=== PATIENT | female | born 1985 | race African-American/Black ===

== ENCOUNTER 2019-08-08 18:21 | Observation (INO) | payer OTHER ==
[~2019-08-08] VITALS: Ht 167.6 cm; Wt 74.5 kg
[2019-08-08 19:23] LABS: BASO % 0 % (0-3); EOS % 0 % (0-3); HEMATOCRIT 37.7 % (36.0-47.0); HEMOGLOBIN 12.7 g/dL (12.0-15.5); LYMPH # 0.8 x10^3/uL (1.0-4.8); LYMPH % 13 % (24-48); MEAN CORPUSCULAR HEMOGLOBIN 31 pg (25-35); MEAN CORPUSCULAR HGB CONC 34 g/dL (31-37); MEAN CORPUSCULAR VOLUME 90 fL (79-100); MONO # 0.3 x10^3/uL (0.0-1.1); MONO % 4 % (0-9); NEUT # 5.3 x10^3/uL (1.8-7.7); NEUT % 82 % (31-73); PLATELET COUNT 162 x10^3/uL (140-400); RED BLOOD COUNT 4.17 x10^6/uL (3.50-5.40); RED CELL DISTRIBUTION WIDTH 13.8 % (11.5-14.5); WHITE BLOOD COUNT 6.5 x10^3/uL (4.0-11.0)
[2019-08-08 19:25] LABS: BILIRUBIN,URINE NEGATIVE (NEG); CLARITY,URINE CLOUDY; NITRITE,URINE NEGATIVE (NEG); PROTEIN,URINE 30 mg/dL (NEG-TRACE); UROBILINOGEN,URINE 0.2 mg/dL (0.2 mg/dL)
[2019-08-08 19:32] LABS: COLOR,URINE PINK
[2019-08-08 19:34] LABS: BACTERIA,URINE FEW /HPF (0-FEW); RBC,URINE >40 /HPF (0-2); SQUAMOUS EPITHELIAL CELL,UR MOD /LPF; WBC,URINE OCC /HPF (0-4)
[2019-08-08 20:04] LABS: CALCIUM 8.4 mg/dL (8.5-10.1); CREATININE 0.7 mg/dL (0.6-1.0); GFR 115.9; POTASSIUM 3.7 mmol/L (3.5-5.1)
[2019-08-08 20:11] LABS: ALBUMIN 3.3 g/dL (3.4-5.0); ALBUMIN/GLOBULIN RATIO 0.9 (1.0-1.7); TOTAL BILIRUBIN 0.2 mg/dL (0.2-1.0); TOTAL PROTEIN 6.8 g/dL (6.4-8.2)
[2019-08-08] MEDS ORDERED: ONDANSETRON PF 4 MG/2 ML VIAL. IVP ONE (20:45)
[2019-08-08] MEDS ORDERED: HYDROmorphone 2 MG/ML VIAL IV ONE (20:45)
--- NOTE | 2019-08-08 20:51 | RAD ---
INDICATION: Vaginal bleeding, . COMPARISON: None available. TECHNIQUE: Endovaginal sonography was performed FINDINGS: The uterus measures 9.5 x 4.8 x 5.6 cm. The endometrium measures 1.3 cm on endovaginal images. Rounded structure is seen in the midline cephalad to the uterus, possibly representing ectopic gestation, without definite cardiac activity. Large volume free pelvic fluid is seen with complex internal echogenicity, likely hemorrhagic. Right ovary measures 2.2 x 3.6 x 2.5 cm. Rim of peripheral vascularity is seen. Left ovary is not well visualized but likely measures 2.3 x 2.5 x 1.8 cm. IMPRESSION: No definite intrauterine gestational sac is identified. However large volume complex free pelvic fluid is likely hemorrhage. Ectopic is suspected in the midline cephalad to the uterus, without definite cardiac activity. These findings are highly suspicious for ruptured ectopic . These findings were discussed with Natasha Hernandez at 8:47 PM 08/08/[address] Pavel Quevedo and also by fibre technologist Effie 08/08/2019 at 8:20 PM. Electronically signed by: Elian Quevedo MD (08/08/2019 8:48 PM) [id number]
--- NOTE | 2019-08-08 21:29 | PHYS DOC ---
Past Medical History Past Medical History: Ectopic Past Surgical History: No Surgical History Additional Past Surgical Histo: PT REPORTS HAVING NO SX FOR HER ECTOPIC AND THAT IT PASSED ON OWN Smoking Status: Never Smoker Alcohol Use: None Adult General Chief Complaint Chief Complaint: VAGINAL BLEEDING HPI HPI Patient is a 34 year old female 4 para 1, 2 miscarriages who presents today complaining of vaginal bleeding in with severe abdominal cramping type pain that began on July 11, 2019. Patient states she was seen by the [employer] [facility] around July 11, 2019 and was informed she is having a miscarriage at 3 weeks , she reports the miscarriage was supposed to pass on its own but she has continued bleed since then, she states today the bleeding got worse and the pain also got worse. Patient denies any exacerbating or relieving factors to her pain. She is also complaining of nausea and vomiting. Review of Systems Review of Systems Constitutional: Denies fever or chills [] Eyes: Denies change in visual acuity, redness, or eye pain [] HENT: Denies nasal congestion or sore throat [] Respiratory: Denies cough or shortness of breath [] Cardiovascular: No additional information not addressed in HPI [] GI: Reports vaginal bleeding and nausea, vomiting, bloody stools or diarrhea [] : Denies dysuria or hematuria [] Musculoskeletal: Denies back pain or joint pain [] Integument: Denies rash or skin lesions [] Neurologic: Denies headache, focal weakness or sensory changes [] All other systems were reviewed and found to be within normal limits, except as documented in this note. Current Medications Current Medications Current Medications Medications (Trade) Dose Ordered Sig/Tristan Start Time Stop Time Status Last Admin Dose Admin Bupivacaine HCl/ Epinephrine Bitart (Sensorcaine-Epi 0.25%-1:393105 Mpf) 30 ml STK-MED ONCE 08/08/19 21:55 08/08/19 21:56 DC Cefazolin Sodium (Ancef) 1 gm STK-MED ONCE 08/08/19 21:45 08/08/19 21:45 DC Cellulose (Surgicel Hemostat 4x8) 1 each STK-MED ONCE 08/08/19 21:56 08/08/19 21:56 DC Dexamethasone Sodium Phosphate (Decadron) 4 mg STK-MED ONCE 08/08/19 21:40 08/08/19 21:40 DC Fentanyl Citrate (Fentanyl 2ml Vial) 50 mcg PRN Q5MIN PRN 08/08/19 21:45 08/09/19 21:44 Hydromorphone HCl (Dilaudid) 0.5 mg PRN Q10MIN PRN 08/08/19 21:45 08/09/19 21:44 Ketorolac Tromethamine (Toradol 30mg Vial) 30 mg STK-MED ONCE 08/08/19 21:40 08/08/19 21:40 DC Lidocaine HCl (Lidocaine Pf 2% Vial) 5 ml STK-MED ONCE 08/08/19 21:40 08/08/19 21:40 DC Morphine Sulfate (Morphine Sulfate) 1 mg PRN Q10MIN PRN 08/08/19 21:45 08/09/19 21:44 Ondansetron HCl (Zofran) 4 mg PRN Q6HRS PRN 08/08/19 21:45 08/09/19 21:44 Prochlorperazine Edisylate (Compazine) 5 mg PACU PRN PRN 08/08/19 21:45 08/09/19 21:44 Propofol 20 ml @ As Directed STK-MED ONCE 08/08/19 21:40 08/08/19 21:40 DC Ringer's Solution 1,000 ml @ 30 mls/hr Q24H 08/08/19 21:45 08/09/19 21:44 Rocuronium [place] (Zemuron) 50 mg STK-MED ONCE 08/08/19 21:39 08/08/19 21:39 DC Sevoflurane (Ultane) 30 ml STK-MED ONCE 08/08/19 21:40 08/08/19 21:40 DC Sodium Chloride (SODIUM CHLORIDE 20ml) 20 ml STK-MED ONCE 08/08/19 21:45 08/08/19 21:45 DC Succinylcholine Chloride (Anectine) 200 mg STK-MED ONCE 08/08/19 21:39 08/08/19 21:40 DC Allergies Allergies Allergies Coded Allergies Type Severity Reaction Last Updated Verified No Known Drug Allergies 07/27/19 No Physical Exam Physical Exam Constitutional: Well developed, well nourished, no acute distress, non-toxic appearance. [] HENT: Normocephalic, atraumatic, bilateral external ears normal, oropharynx moist, no oral exudates, nose normal. [] Eyes: PERRLA, EOMI, conjunctiva normal, no discharge. [] Neck: Normal range of motion, no tenderness, supple, no stridor. [] Cardiovascular:Heart rate regular rhythm, no murmur [] Lungs & Thorax: Bilateral breath sounds clear to auscultation [] Abdomen: Bowel sounds normal, soft, no tenderness, no masses, no pulsatile masses. [] Pelvic exam External pelvic is covered with small amount of bright red blood. Cervix is visualized, small amount of bright red blood noted from the cervical os, moderate CMT and bilateral adnexal tenderness. Skin: Warm, dry, no erythema, no rash. [] Back: No tenderness, no CVA tenderness. [] Extremities: No tenderness, no cyanosis, no clubbing, ROM intact, no edema. [] Neurologic: Alert and oriented X 3, normal motor function, normal sensory function, no focal deficits noted. [] Psychologic: Affect normal, judgement normal, mood normal. [] Current Patient Data Vital Signs Vital Signs Date Time Temp Pulse Resp B/P (MAP) Pulse Ox O2 Delivery O2 Flow Rate FiO2 08/08/19 21:16 78 13 122/84 (97) 98 Room Air 08/08/19 18:59 97.5 97.5 Lab Values Laboratory Tests Test 08/08/19 18:32 08/08/19 19:12 08/08/19 19:40 Urine Collection Type Unknown Urine Color [place] Urine Clarity Cloudy Urine pH 6.0 (<5.0-8.0) Urine Specific [place] 1.025 (1.000-1.030) Urine Protein 30 mg/dL (NEG-TRACE) Urine Glucose (UA) Negative mg/dL (NEG) Urine Ketones (Stick) Negative mg/dL (NEG) Urine Blood Large (NEG) Urine Nitrite Negative (NEG) Urine Bilirubin Negative (NEG) Urine Urobilinogen Dipstick 0.2 mg/dL (0.2 mg/dL) Urine Leukocyte Esterase Negative (NEG) Urine RBC >40 /HPF (0-2) Urine WBC Occ /HPF (0-4) Urine Squamous Epithelial Cells Mod /LPF Urine Bacteria Few /HPF (0-FEW) Urine Mucus Marked /LPF White Blood Count 6.5 x10^3/uL (4.0-11.0) Red Blood Count 4.17 x10^6/uL (3.50-5.40) Hemoglobin 12.7 g/dL (12.0-15.5) Hematocrit 37.7 % (36.0-47.0) Mean Corpuscular Volume 90 fL (79-100) Mean Corpuscular Hemoglobin 31 pg (25-35) Mean Corpuscular Hemoglobin Concent 34 g/dL (31-37) Red Cell Distribution Width 13.8 % (11.5-14.5) Platelet Count 162 x10^3/uL (140-400) Neutrophils (%) (Auto) 82 % (31-73) H Lymphocytes (%) (Auto) 13 % (24-48) L Monocytes (%) (Auto) 4 % (0-9) Eosinophils (%) (Auto) 0 % (0-3) Basophils (%) (Auto) 0 % (0-3) Neutrophils # (Auto) 5.3 x10^3/uL (1.8-7.7) Lymphocytes # (Auto) 0.8 x10^3/uL (1.0-4.8) L Monocytes # (Auto) 0.3 x10^3/uL (0.0-1.1) Eosinophils # (Auto) 0.0 x10^3/uL (0.0-0.7) Basophils # (Auto) 0.0 x10^3/uL (0.0-0.2) POC Urine HCG, Qualitative Hcg positive (Negative) Maternal Serum HCG Beta Subunit 88151 mIU/mL (0-5) H Sodium Level 138 mmol/L (136-145) Potassium Level 3.7 mmol/L (3.5-5.1) Chloride Level 103 mmol/L (98-107) Carbon Dioxide Level 24 mmol/L (21-32) Anion Gap 11 (6-14) Blood Urea Nitrogen 6 mg/dL (7-20) L Creatinine 0.7 mg/dL (0.6-1.0) Estimated GFR (Cockcroft-Gault) 115.9 BUN/Creatinine Ratio 9 (6-20) Glucose Level 120 mg/dL (70-99) H Calcium Level 8.4 mg/dL (8.5-10.1) L Total Bilirubin 0.2 mg/dL (0.2-1.0) Aspartate Amino Transferase (AST) 8 U/L (15-37) L Alanine Aminotransferase (ALT) 10 U/L (14-59) L Alkaline Phosphatase 43 U/L (46-116) L Total Protein 6.8 g/dL (6.4-8.2) Albumin 3.3 g/dL (3.4-5.0) L Albumin/Globulin Ratio 0.9 (1.0-1.7) L Laboratory Tests 08/08/19 19:12 Laboratory Tests 08/08/19 19:40 Microbiology 08/08/19 Wet Prep - Final, Complete EKG EKG [] Radiology/Procedures Radiology/Procedures [] Course & Med Decision Making Course & Med Decision Making Pertinent Labs and Imaging studies reviewed. (See chart for details) This is a 34-year-old female patient presenting to the ED today with vaginal bleeding and that began July 11, 2019. See HPI. Positive urine hCG. Beta hCG 26,430, hemoglobin 12.7, hematocrit 37.7, blood pressure 132/87, heart rate 100. Received a call from radiologist stating patient has a ruptured ectopic. Dr. Hernandez was consulted right away, he is on the way to take patient to surgery Dr. Ortiz aware of her condition Dragon Disclaimer Dragon Disclaimer This electronic medical record was generated, in whole or in part, using a voice recognition dictation system. Departure Departure Impression: Primary Impression: Ruptured ectopic Disposition: ADMITTED INPATIENT Condition: STABLE Referrals: NELIDA MCKAY MD (PCP) JOMAR TRENT APRN Aug 08, 2019 21:29
--- NOTE | 2019-08-08 21:29 | PDOC1 ---
History and Physical Date of Admission Date of Admission DATE: 08/08/19 TIME: 21:25 Identification/Chief Complaint Chief Complaint Abd pain Source Source: Chart review, Patient History of Present Illness History of Present Illness 34 y/o A2 @ 7 wks gestation presented to ED with c/o abd pain that continued to worsen and vaginal spotting. Pelvic sono indicated ruptured ectopic . She has h/o ectopic in past with salpingectomy. Past Medical History Cardiovascular: No pertinent hx Pulmonary: No pertinent hx GI: No pertinent hx Heme/Onc: No pertinent hx Hepatobiliary: No pertinent hx Psych: No pertinent hx Rheumatologic: No pertinent hx Infectious disease: No pertinent hx Renal/: No pertinent hx Past Surgical History Past Surgical History: Other ([facility] salpingectomy for ectopic ) Current Medications Current Medications Current Medications Hydromorphone HCl (Dilaudid) 1 mg 1X ONCE IV Last administered on 08/08/19at 2 0:45; Start 08/08/19 at 20:45; Stop 08/08/19 at 20:46; Status DC Ondansetron HCl (Zofran) 4 mg 1X ONCE IVP Last administered on 08/08/19at 20:44; Start 08/08/19 at 20:45; Stop 08/08/19 at 20:46; Status DC Allergies Allergies: Coded Allergies: No Known Drug Allergies (Unverified , 07/27/19) ROS General: YES: Chills, Fatigue; No: Night Sweats, Malaise, Appetite, Other PSYCHOLOGICAL ROS: YES: Anxiety; No: Behavioral Disorder, Concentration difficultie, Decreased libido, D epression, Disorientation, Hallucinations, Hostility, Irritablity, Memory difficulties, Mood Swings, Obsessive thoughts, Physical abuse, Sexual abuse, Sleep disturbances, Suicidal ideation, Other Eyes: No Blurry vision, No Decreased vision, No Double vision, No Dry eyes, No Excessive tearing, No Eye Pain, No Itchy Eyes, No Loss of vision, No Photophobia, No Scotomata, No Uses contacts, No Uses glasses, No Other HEENT: No: Heacaches, Visual Changes, Hearing change, Nasal congestion, Nasal discharge, Oral lesions, Sinus pain, Sore Throat, Epistaxis, Sneezing, Snoring, Tinnitus, Vertigo, Vocal changes, Other ALLERGY AND IMMUNOLOGY: No: Hives, Insect Bite Sensitivity, Itchy/Watery Eyes, Nasal Congestion, Post Nasal Drip, Seasonal Allergies, Other Hematological and Lymphatic: No: Bleeding Problems, Blood Clots, Blood Transfusions, Brusing, Night Sweats, Pallor, Swollen Lymph Nodes, Other ENDOCRINE: No: Breast Changes, Galactorrhea, Hair Pattern Changes, Hot Flashes, Malaise/lethargy, Mood Swings, Palpitations, Polydipsia/polyuria, Skin Changes, Temperature Intolerance, Unexpected Weight Changes, Other Breast: No New/Changing Breast Lumps, No Nipple changes, No Nipple discharge, No Other Respiratory: No: Cough, Hemoptysis, Orthopnea, Pleuritic Pain, Shortness of breath, SOB with excertion, Sputum Changes, Stridor, Tachypnea, Wheezing, Other Cardiovascular: No Chest Pain, No Palpitations, No Orthopnea, No Paroxysmal Noc. Dyspnea, No Edema, No Lt Headedness, No Other Gastrointestinal: Yes Nausea, Yes Abdominal Pain Neurological: No Behavorial Changes, No Bowel/Bladder ControlChng, No Confusion, No Dizziness, No Gait Disturbance, No Headaches, No Impaired Coor d/balance, No Memory Loss, No Numbness/Tingling, No Seizures, No Speech Problems, No Tremors, No Visual Changes, No Weakness, No Other Skin: No Dry Skin, No Eczema, No Hair Changes, No Lumps, No Mole Changes, No Mottling, No Nail Changes, No Pruritus, No Rash, No Skin Lesion Changes, No Other, No Acne Physical Exam General: Alert, Oriented X3, Cooperative, moderate distress HEENT: Atraumatic Lungs: Clear to auscultation Heart: S1S2 Abdomen: Soft, Other (tenderness to palpation) PELVIC: Other (deferred) Psych/Mental Status: Mental status NL Vitals Vitals Vital Signs Date Time Temp Pulse Resp B/P (MAP) Pulse Ox O2 Delivery O2 Flow Rate FiO2 08/08/19 20:45 18 100 Room Air 08/08/19 20:45 86 122/88 (99) 08/08/19 18:59 97.5 97.5 Labs Labs Laboratory Tests Test 08/08/19 18:32 08/08/19 19:12 08/08/19 19:40 Urine Collection Type Unknown Urine Color [place] Urine Clarity Cloudy Urine pH 6.0 (<5.0-8.0) Urine Specific [place] 1.025 (1.000-1.030) Urine Protein 30 mg/dL (NEG-TRACE) Urine Glucose (UA) Negative mg/dL (NEG) Urine Ketones (Stick) Negative mg/dL (NEG) Urine Blood Large (NEG) Urine Nitrite Negative (NEG) Urine Bilirubin Negative (NEG) Urine Urobilinogen Dipstick 0.2 mg/dL (0.2 mg/dL) Urine Leukocyte Esterase Negative (NEG) Urine RBC >40 /HPF (0-2) Urine WBC Occ /HPF (0-4) Urine Squamous Epithelial Cells Mod /LPF Urine Bacteria Few /HPF (0-FEW) Urine Mucus Marked /LPF White Blood Count 6.5 x10^3/uL (4.0-11.0) Red Blood Count 4.17 x10^6/uL (3.50-5.40) Hemoglobin 12.7 g/dL (12.0-15.5) Hematocrit 37.7 % (36.0-47.0) Mean Corpuscular Volume 90 fL (79-100) Mean Corpuscular Hemoglobin 31 pg (25-35) Mean Corpuscular Hemoglobin Concent 34 g/dL (31-37) Red Cell Distribution Width 13.8 % (11.5-14.5) Platelet Count 162 x10^3/uL (140-400) Neutrophils (%) (Auto) 82 % (31-73) Lymphocytes (%) (Auto) 13 % (24-48) Monocytes (%) (Auto) 4 % (0-9) Eosinophils (%) (Auto) 0 % (0-3) Basophils (%) (Auto) 0 % (0-3) Neutrophils # (Auto) 5.3 x10^3/uL (1.8-7.7) Lymphocytes # (Auto) 0.8 x10^3/uL (1.0-4.8) Monocytes # (Auto) 0.3 x10^3/uL (0.0-1.1) Eosinophils # (Auto) 0.0 x10^3/uL (0.0-0.7) Basophils # (Auto) 0.0 x10^3/uL (0.0-0.2) Bedside Urine HCG, Qualitative Hcg positive (Negative) Maternal Serum HCG Beta Subunit 07505 mIU/mL (0-5) Sodium Level 138 mmol/L (136-145) Potassium Level 3.7 mmol/L (3.5-5.1) Chloride Level 103 mmol/L (98-107) Carbon Dioxide Level 24 mmol/L (21-32) Anion Gap 11 (6-14) Blood Urea Nitrogen 6 mg/dL (7-20) Creatinine 0.7 mg/dL (0.6-1.0) Estimated GFR (Cockcroft-Gault) 115.9 BUN/Creatinine Ratio 9 (6-20) Glucose Level 120 mg/dL (70-99) Calcium Level 8.4 mg/dL (8.5-10.1) Total Bilirubin 0.2 mg/dL (0.2-1.0) Aspartate Amino Transf (AST/SGOT) 8 U/L (15-37) Alanine Aminotransferase (ALT/SGPT) 10 U/L (14-59) Alkaline Phosphatase 43 U/L (46-116) Total Protein 6.8 g/dL (6.4-8.2) Albumin 3.3 g/dL (3.4-5.0) Albumin/Globulin Ratio 0.9 (1.0-1.7) Laboratory Tests Test 08/08/19 18:32 08/08/19 19:12 08/08/19 19:40 Urine Collection Type Unknown Urine Color [place] Urine Clarity Cloudy Urine pH 6.0 (<5.0-8.0) Urine Specific [place] 1.025 (1.000-1.030) Urine Protein 30 mg/dL (NEG-TRACE) Urine Glucose (UA) Negative mg/dL (NEG) Urine Ketones (Stick) Negative mg/dL (NEG) Urine Blood Large (NEG) Urine Nitrite Negative (NEG) Urine Bilirubin Negative (NEG) Urine Urobilinogen Dipstick 0.2 mg/dL (0.2 mg/dL) Urine Leukocyte Esterase Negative (NEG) Urine RBC >40 /HPF (0-2) Urine WBC Occ /HPF (0-4) Urine Squamous Epithelial Cells Mod /LPF Urine Bacteria Few /HPF (0-FEW) Urine Mucus Marked /LPF White Blood Count 6.5 x10^3/uL (4.0-11.0) Red Blood Count 4.17 x10^6/uL (3.50-5.40) Hemoglobin 12.7 g/dL (12.0-15.5) Hematocrit 37.7 % (36.0-47.0) Mean Corpuscular Volume 90 fL (79-100) Mean Corpuscular Hemoglobin 31 pg (25-35) Mean Corpuscular Hemoglobin Concent 34 g/dL (31-37) Red Cell Distribution Width 13.8 % (11.5-14.5) Platelet Count 162 x10^3/uL (140-400) Neutrophils (%) (Auto) 82 % (31-73) Lymphocytes (%) (Auto) 13 % (24-48) Monocytes (%) (Auto) 4 % (0-9) Eosinophils (%) (Auto) 0 % (0-3) Basophils (%) (Auto) 0 % (0-3) Neutrophils # (Auto) 5.3 x10^3/uL (1.8-7.7) Lymphocytes # (Auto) 0.8 x10^3/uL (1.0-4.8) Monocytes # (Auto) 0.3 x10^3/uL (0.0-1.1) Eosinophils # (Auto) 0.0 x10^3/uL (0.0-0.7) Basophils # (Auto) 0.0 x10^3/uL (0.0-0.2) Bedside Urine HCG, Qualitative Hcg positive (Negative) Maternal Serum HCG Beta Subunit 14789 mIU/mL (0-5) Sodium Level 138 mmol/L (136-145) Potassium Level 3.7 mmol/L (3.5-5.1) Chloride Level 103 mmol/L (98-107) Carbon Dioxide Level 24 mmol/L (21-32) Anion Gap 11 (6-14) Blood Urea Nitrogen 6 mg/dL (7-20) Creatinine 0.7 mg/dL (0.6-1.0) Estimated GFR (Cockcroft-Gault) 115.9 BUN/Creatinine Ratio 9 (6-20) Glucose Level 120 mg/dL (70-99) Calcium Level 8.4 mg/dL (8.5-10.1) Total Bilirubin 0.2 mg/dL (0.2-1.0) Aspartate Amino Transf (AST/SGOT) 8 U/L (15-37) Alanine Aminotransferase (ALT/SGPT) 10 U/L (14-59) Alkaline Phosphatase 43 U/L (46-116) Total Protein 6.8 g/dL (6.4-8.2) Albumin 3.3 g/dL (3.4-5.0) Albumin/Globulin Ratio 0.9 (1.0-1.7) VTE Prophylaxis Ordered VTE Prophylaxis Devices: No VTE Pharmacological Prophylaxi: No Assessment/Plan Assessment/Plan A: Ruptured ectopic P: Plan for [facility] unilateral salpingectomy. MICHELLE HERNANDEZ Jr, MD Aug 08, 2019 21:29
[2019-08-08] MEDS ORDERED: ROCURONIUM 50 MG/5 ML VIAL. ONE (21:39)
[2019-08-08] MEDS ORDERED: SUCCINYLCHOLINE 200 MG/10 ML VIAL. ONE (21:39)
[2019-08-08] MEDS ORDERED: KETOROLAC 30 MG/ML VIAL. ONE (21:40)
[2019-08-08] MEDS ORDERED: DEXAMETHASONE SOD PHOS 4 MG/ML VIAL ONE (21:40)
[2019-08-08] MEDS ORDERED: SEVOFLURANE 31 TO 60 MINUTES. IH ONE (21:40)
[2019-08-08] MEDS ORDERED: LIDOCAINE 2% PF 5 ML VIAL. ONE (21:40)
[2019-08-08] MEDS ORDERED: PROPOFOL 20 ML IV ONE (21:40)
[2019-08-08] MEDS ORDERED: PROCHLORPERAZINE 10 MG/2 ML VIAL. IV PRN ×2 (21:45→23:45)
[2019-08-08] MEDS ORDERED: IV RINGERS,LACTATED 1000ML 1,000 ML IV SCH (21:45)
[2019-08-08] MEDS ORDERED: fentaNYL PF VIAL 100 MCG/2 ML VIAL IV PRN ×2 (21:45)
[2019-08-08] MEDS ORDERED: ONDANSETRON PF 4 MG/2 ML VIAL. IV PRN ×3 (21:45→23:45)
[2019-08-08] MEDS ORDERED: MORPHINE SULFATE 2 MG/ML VIAL. IV PRN (21:45)
[2019-08-08] MEDS ORDERED: 0.9 % SODIUM CHLORIDE 20 ML VIAL. IJ ONE (21:45)
[2019-08-08] MEDS ORDERED: HYDROmorphone 2 MG/ML VIAL IV PRN (21:45)
[2019-08-08] MEDS ORDERED: ceFAZolin SODIUM IV Push 1 GM VIAL. IVP ONE (21:45)
[2019-08-08] MEDS ORDERED: BUPIVACAINE-EPI 0.25%-1:200000 MPF 30 ML VIAL. ONE (21:55)
[2019-08-08] MEDS ORDERED: SURGICEL HEMOSTAT 4X8 EACH. ONE (21:56)
[2019-08-08] MEDS ORDERED: MORPHINE SULFATE 4 MG/ML VIAL. IV PRN (22:00)
[2019-08-08] MEDS ORDERED: fentaNYL PF VIAL 100 MCG/2 ML VIAL ONE (22:33)
[2019-08-08] MEDS ORDERED: NEOSTIGMINE METHYLSULFATE 5 MG/5 ML SYRINGE. ONE (22:50)
[2019-08-08] MEDS ORDERED: GLYCOPYRROLATE 1 MG/5 ML VIAL. ONE (22:50)
--- NOTE | 2019-08-08 23:33 | PDOC ---
BRIEF OPERATIVE NOTE Date: Aug 08, 2019 Pre-Op Diagnosis Ruptured Ectopic Post-Op Diagnosis Same Procedure Performed [facility] Left Salpingectomy Surgeon Dr. Hernandez Anesthesia Type: General Blood Loss 1, 000 ml Specimens Obtained Left fallopian tube with ectopic Findings Ruptured Left ectopic with about 1, 000 ml blood clot in abdomen; nml ovaries marhta. Complications none Operative Note see dictation MICHELLE HERNANDEZ Jr, MD Aug 08, 2019 23:32
[2019-08-08] MEDS ORDERED: 0.9 % SODIUM CHLORIDE 10 ML DISP.SYRIN. IV PRN (23:45)
[2019-08-08] MEDS ORDERED: diphenhydrAMINE 50 MG/ML VIAL IV PRN (23:45)
[2019-08-08] MEDS ORDERED: diphenhydrAMINE HCL 25 MG CAPSULE PO PRN (23:45)
[2019-08-08] MEDS ORDERED: ZOLPIDEM 5 MG TABLET. PO PRN (23:45)
[2019-08-08] MEDS ORDERED: KETOROLAC 30 MG/ML VIAL. IV PRN (23:45)
[2019-08-08] MEDS ORDERED: SIMETHICONE 80 MG TAB.CHEW PO PRN (23:45)
[2019-08-08] MEDS ORDERED: DEXTROSE 50% 25 GM / 50ML DISP.SYRIN. IV PRN (23:45)
[2019-08-08] MEDS ORDERED: CALCIUM CARBONATE 500 MG TAB.CHEW PO PRN (23:45)
[2019-08-09] VITALS (11 sets, daily range): BP systolic 109–132; BP diastolic 70–88
--- NOTE | 2019-08-09 00:23 | OP ---
DATE OF SURGERY: 08/08/2019 PREOPERATIVE DIAGNOSIS: Ruptured ectopic . POSTOPERATIVE DIAGNOSIS: Ruptured ectopic . PROCEDURE: Laparoscopic left salpingectomy. SURGEON: Jorge Luis Hernandez MD ANESTHESIA: GETA. ESTIMATED BLOOD LOSS: 1000 mL. COMPLICATIONS: None. FINDINGS: Ruptured left ectopic with about 1000 mL of blood clot in the abdomen. Normal ovaries bilaterally. SUMMARY: A 34-year-old female who presented to the Emergency Department with severe abdominal pain and vaginal spotting. The patient was found to have a ruptured ectopic . She was counseled on risks, benefits and expectations of laparoscopic salpingectomy for removal of ectopic . The patient voiced clear understanding to proceed. DESCRIPTION OF PROCEDURE: The patient was taken to surgery suite, placed in dorsal lithotomy position. She was prepped with Betadine solution for vaginal prep and ChloraPrep for abdominal prep. After adequate anesthesia, weighted speculum was placed vaginally. The anterior lip of the cervix grasped with single tooth tenaculum. Uterine acorn manipulator was then placed. Weighted speculum was removed. Attention was now placed on abdomen. A small vertical skin incision was made just below the umbilicus with a scalpel. The Veress needle was then placed through the infraumbilical incision site. The abdomen was allowed to insufflate up to 1-1/2 liters of CO2 gas. The Veress needle was then removed, 5 mm trocar was placed. Scope was positioned. There was moderate amount of blood clot and blood in the abdominal cavity. Two additional incisions were made in the left lower quadrant, which 5 mm trocars as well as an 11 mm trocar was placed with aid of suction irrigation, graspers. The blood clot was removed with suction irrigation. The left fallopian tube containing the ectopic with active bleeding from the fimbriated end was visualized. With aid of the EnSeal device, the salpingectomy was performed removing the fallopian tube and the ectopic that was contained within. This was placed in the Endobag and removed from the abdominal cavity. Additional suction irrigation was utilized to remove as much of the blood clot as possible. The pedicle was hemostatic. A small amount of normal saline was left in posterior cul-de-sac. The trocars were then removed under direct visualization. Abdomen was allowed to deflate as much as possible along with mechanical manipulation. The 11 mm port was closed at the fascial layer using 2-0 Vicryl suture in [id number] manner. The three incisions were closed at the skin level using 4-0 Vicryl suture in subcuticular manner. A 0.25% Marcaine with epinephrine was injected at each incision site. Uterine acorn manipulator and single tooth tenaculum were removed. The patient tolerated the procedure well and was taken to recovery room in stable condition. Sponge and needle count correct x 3. JORGE LUIS HERNANDEZ MD DR: ÁLVARO/florentino JOB#: [id number] / [id number]
[2019-08-09] MEDS: oxyCODONE/APAP 5/325 1 TAB TABLET PO PRN ×2 (03:51→13:09)
[2019-08-09] MEDS: GABAPENTIN 300 MG CAPSULE. PO SCH ×2 (06:05→13:07)
[2019-08-09 06:28] LABS: BASO % 0 % (0-3); EOS % 0 % (0-3); HEMATOCRIT 30.8 % (36.0-47.0); HEMOGLOBIN 10.5 g/dL (12.0-15.5); LYMPH # 0.8 x10^3/uL (1.0-4.8); LYMPH % 8 % (24-48); MEAN CORPUSCULAR HEMOGLOBIN 31 pg (25-35); MEAN CORPUSCULAR HGB CONC 34 g/dL (31-37); MEAN CORPUSCULAR VOLUME 89 fL (79-100); MONO # 0.3 x10^3/uL (0.0-1.1); MONO % 3 % (0-9); NEUT # 9.1 x10^3/uL (1.8-7.7); NEUT % 89 % (31-73); PLATELET COUNT 174 x10^3/uL (140-400); RED BLOOD COUNT 3.45 x10^6/uL (3.50-5.40); RED CELL DISTRIBUTION WIDTH 14.3 % (11.5-14.5); WHITE BLOOD COUNT 10.2 x10^3/uL (4.0-11.0)
[2019-08-09 10:12] LABS: % LYMPHS 6 % (24-48); % MONOS 2 % (0-10); % SEGS 92 % (35-66); PLT ESTIMATE ADEQUATE (ADEQUATE)
[2019-08-09] MEDS ORDERED: IBUP-1060 PO (17:27)
[2019-08-09] MEDS ORDERED: OXYC1TAB15 PO (17:27)
--- NOTE | 2019-08-09 17:28 | DISCH ---
DISCHARGE INSTRUCTIONS Condition on Discharge Condition on Discharge: Stable Activity After Discharge Activity Instructions for Disc: Activity as tolerated Lifting Instructions after Dis: No heavy lifting Exercise Instruction after Dis: Progress as tolerated Driving Instructions after Dis: Do not drive today Diet after Discharge Diet after Discharge: Regular Diet Texture: Regular Contacting the DRRomán after DC Call your doctor for: Concerns you may have Follow-Up Follow up with: Dr. Hernandez in 1 week Treatment/Equipment after DC Adaptive Equipment Issued: None MICHELLE HERNANDEZ Jr, MD Aug 09, 2019 17:28
[2019-08-09] MEDS ORDERED: IBUPROFEN 400 MG TABLET. PO PRN (18:30)
--- NOTE | 2019-08-09 18:45 | NUR ---
Discharge and follow up instructions given to pt and 2 RX also given for percocet and ibuprofen. Pt ambulated out of the hospital with staff by her side and her mother was picking her up outside the hospital.
--- NOTE | 2019-08-10 17:06 | PATHOLOGY ---
[facility] Accession Number: [id number] . 01 Material submitted: . fallopian tube - LEFT SALPINGECTOMY WITH ECTOPIC PREG. Modifiers: left . 01 Clinical history: . Left ectopic . 02 Diagnosis: Fallopian tube, left salpingectomy: - Ectopic tubal , ruptured. - Hematosalpinx. . (JPM:mml; 08/10/2019) [facility] 08/10/2019 1257 Local . 02 Electronically signed: . Juan R Antony MD, Pathologist NPI- [id number] . 01 Gross description: . The specimen is received in formalin, labeled "Liliane Aburto, left salpingectomy with ectopic ". Received is a fimbriated fallopian tube measuring 6.9 cm in length and ranges in diameter from 1.1 to 2.6 cm. The specimen is blown out at the fimbriated aspect with a moderate amount of adherent blood coagulum. Sectioning reveals a dilated lumen filled with blood coagulum and possible light elder spongiform tissue. The specimen is submitted representatively in cassettes A1 through A3. (CAA; 08/09/2019) QAC/QAC 08/09/2019 1521 Local . 02 Pathologist provided ICD-10: O00.90, N83.6 . 02 CPT . 312621 Specimen Comment: A courtesy copy of this report has been sent to [phone], [phone] Specimen Comment: [id number] Specimen Comment: Report sent to / DR MCKAY Performed at: 01 [facility] [address], [place], [place] [id number] MD Malachi Larsen MD Phone: [phone] Performed at: 02 [facility] [address], [place] [id number] MD Juan R Antony MD Phone: [phone]
[2019-08-10 20:08] LABS: GC PROBE Negative (Negative)
== END 2019-08-09 18:35 | disposition home or self-care (01) ==
LOC: ER 18:21 → 3 NORTH 21:31 → INTOOBSV 21:31
PROVIDERS: ADMIT Obstetrics & Gynecology; ATTEND Obstetrics & Gynecology
DX: O00.90 Unspecified ectopic pregnancy without intrauterine pregnancy (principal); Z3A.01 Less than 8 weeks gestation of pregnancy
CPT/HCPCS: 36415; 59151; 76817; 80053; 81001; 81025; 84702; 85007; 85025; 86850; 86900; 86901; 87491; 87591; 96374; 96375; 99284; A7015; G0378; J0690; J1100; J1170; J1885; J2001; J2405; J2704; J2710; J3490; J7030; J7120; Q0111; 88305; G0379; J0330; J3010